=== PATIENT | male | born 1960 | race Hispanic/Latino ===

== ENCOUNTER 2020-03-30 16:22 | Emergency (ER) | payer BC ==
[2020-03-30] MEDS ORDERED: traMADol HCl 50 MG TAB ONE ×2 (17:41→17:43)
[2020-03-30] MEDS ORDERED: Adacel (T-DAP) 0.5 ML SYRINGE ONE ×2 (17:41→17:43)
== END 2020-03-30 20:15 | disposition home or self-care (01) ==
LOC: ERS 16:22
DX: S91.201A Unspecified open wound of right great toe with damage to nail, initial encounter (principal); E11.9 Type 2 diabetes mellitus without complications; E78.5 Hyperlipidemia, unspecified; E78.00 Pure hypercholesterolemia, unspecified; I10 Essential (primary) hypertension; W23.0XXA Caught, crushed, jammed, or pinched between moving objects, initial encounter
CPT/HCPCS: 90471; 90715